=== PATIENT | male | born 1945 | race Caucasian/White ===

== ENCOUNTER 2016-12-22 09:10 | Inpatient (IN) | payer MEDICARE ==
[~2016-12-22] VITALS: Ht 188 cm; Wt 62.2 kg
[2016-12-22] VITALS (8 sets, daily range): BP systolic 102–116; BP diastolic 59–72; PULSE 86–110; RESP 18–26; TEMP 97.7–98.1; O2SAT 74–95
[~2016-12-22 09:10] MED LIST: PRED50 PO
[2016-12-22] MEDS ORDERED: RESP: ALBUTEROL 2.5 MG/IPRATROPIUM 0.5 MG NEB (PRN) ONE ×2 (09:30)
--- NOTE | 2016-12-22 09:39 | PD ---
HPI Chief Complaint: Respiratory Distress Time Seen by Provider: 09:22 Travel History International Travel<30 days: No Contact w/Intl Traveler<30days: No Traveled to known affect area: No History of Present Illness HPI This patient presents with shortness of breath with respiratory distress. He has room air saturation 74% on arrival. He is a lifelong smoker who quit 3 weeks ago. He is been recently very congested and having a cough productive of yellow phlegm. He is not sure if he has had any fever. He denies chest pain other than when he coughs in his chest wall is sore. Symptoms are severe. No alleviating factors. Duration is 3 days. He denies cardiac disease PFSH Past Medical History Hx Anticoagulant Therapy: Yes (ASPIRIN 81) Asthma: Yes COPD: Yes Respiratory: Yes (COPD) Past Surgical History Surgical History: No Previous Surgery Social History Alcohol Use: Yes (3-4 SHOTS OF [place] EVERY DAY ) Tobacco Use: No Substance Use: No Allergies-Medications (Allergen,Severity, Reaction): Coded Allergies: No Known Allergies (Unverified , 12/22/16) Reported Meds & Prescriptions Reported Meds & Active Scripts Active Reported Aspirin 81 Mg Chew 81 Mg CHEW DAILY Review of Systems General / Constitutional: No: Fever Eyes: No: Visual changes HENT: Positive: Congestion, No: Headaches Cardiovascular: No: Chest Pain or Discomfort Respiratory: Positive: Cough, Shortness of Breath, Wheezing Gastrointestinal: No: Abdominal Pain Genitourinary: No: Dysuria Musculoskeletal: No: Pain Skin: No Rash Neurologic: No: Weakness Psychiatric: No: Depression Endocrine: No: Polydipsia Hematologic/Lymphatic: No: Easy Bruising Physical Exam Narrative GENERAL: Thin elderly well-developed patient in respiratory distress. SKIN: Warm and dry. HEAD: Atraumatic. Normocephalic. EYES: Pupils equal and round. No scleral icterus. No injection or drainage. ENT: No nasal bleeding or discharge. Mucous membranes pink and moist. NECK: Trachea midline. No JVD. CARDIOVASCULAR: Regular rate and rhythm. No murmur appreciated. Tachycardic without ectopy RESPIRATORY: Positive accessory muscle use. Diffuse rhonchi with expiratory wheezing. Breath sounds equal bilaterally. No crackles heard GASTROINTESTINAL: Abdomen soft, non-tender, nondistended. Hepatic and splenic margins not palpable. MUSCULOSKELETAL: No obvious deformities. No clubbing. No cyanosis. No edema. NEUROLOGICAL: Awake and alert. No obvious cranial nerve deficits. Motor grossly within normal limits. Normal speech. PSYCHIATRIC: Appropriate mood and affect; insight and judgment normal. Data Data Last Documented VS Vital Signs Date Time Temp Pulse Resp B/P Pulse Ox O2 Delivery O2 Flow Rate FiO2 12/22/16 10:24 94 Nasal Cannula 5.00 12/22/16 09:19 26 12/22/16 09:13 98.1 110 104/72 Orders Albuterol-Ipratropium Neb (Duoneb Neb) (12/22/16 09:30) Albuterol-Ipratropium Neb (Duoneb Neb) (12/22/16 09:30) Complete Blood Count With Diff (12/22/16 09:32) Basic Metabolic Panel (Bmp) (12/22/16 09:32) Influenzae A/B Antigen (12/22/16 09:32) Iv Access Insert/Monitor (12/22/16 09:32) Ecg Monitoring (12/22/16 09:32) Oximetry (12/22/16 09:32) Oxygen Administration (12/22/16 09:32) Chest, Single Ap (12/22/16 09:32) Sodium Chloride 0.9% Flush (Ns Flush) (12/22/16 09:45) Methylprednisolone So Succ Inj (Solumedr (12/22/16 09:45) Albuterol-Ipratropium Neb (Duoneb Neb) (12/22/16 09:45) Sputum Culture And Gram Stain (12/22/16 09:46) Electrocardiogram (12/22/16 09:28) Levofloxacin (Levaquin) (12/22/16 10:45) Albuterol-Ipratropium Neb (Duoneb Neb) (12/22/16 10:45) Admit To Inpatient (12/22/16 ) Vital Signs (Adult) Q4H (12/22/16 11:27) Bedside Glucose LISHA.AC&HS (12/22/16 11:27) Intake + Output LISHA.QSHIFT (12/22/16 11:27) Diet Heart Healthy (12/22/16 Lunch) Sodium Chloride 0.9% Flush (Ns Flush) (12/22/16 11:30) Sodium Chloride 0.9% Flush (Ns Flush) (12/22/16 21:00) Acetaminophen (Tylenol) (12/22/16 11:30) Ondansetron Inj (Zofran Inj) (12/22/16 11:30) Basic Metabolic Panel (Bmp) (12/23/16 06:00) Complete Blood Count With Diff (12/23/16 06:00) Resp Oxygen Nolberto C Titrat 1-4 L (12/22/16 ) Enoxaparin Inj (Lovenox Inj) (12/22/16 11:30) Naloxone Inj (Narcan Inj) (12/22/16 11:30) Inpatient Certification (12/22/16 ) Ceftriaxone Inj (Rocephin Inj) (12/22/16 11:30) Azithromycin Inj (Zithromax Inj) (12/22/16 11:30) Methylprednisolone So Succ Inj (Solumedr (12/22/16 12:00) Albuterol-Ipratropium Neb (Duoneb Neb) (12/22/16 14:00) Albuterol-Ipratropium Neb (Duoneb Neb) (12/22/16 11:30) Potassium Chloride (Kcl) (12/22/16 11:30) Labs Laboratory Tests Test 12/22/16 09:35 White Blood Count 15.7 TH/MM3 Red Blood Count 4.43 MIL/MM3 Hemoglobin 16.3 GM/DL Hematocrit 47.7 % Mean Corpuscular Volume 107.8 FL Mean Corpuscular Hemoglobin 36.7 PG Mean Corpuscular Hemoglobin 34.1 % Concent Red Cell Distribution Width 12.4 % Platelet Count 623 TH/MM3 Mean Platelet Volume 8.7 FL Neutrophils (%) (Auto) 74.1 % Lymphocytes (%) (Auto) 14.2 % Monocytes (%) (Auto) 11.3 % Eosinophils (%) (Auto) 0.1 % Basophils (%) (Auto) 0.3 % Neutrophils # (Auto) 11.6 TH/MM3 Lymphocytes # (Auto) 2.2 TH/MM3 Monocytes # (Auto) 1.8 TH/MM3 Eosinophils # (Auto) 0.0 TH/MM3 Basophils # (Auto) 0.0 TH/MM3 CBC Comment DIFF FINAL Differential Comment Sodium Level 138 MEQ/L Potassium Level 3.1 MEQ/L Chloride Level 99 MEQ/L Carbon Dioxide Level 29.5 MEQ/L Anion Gap 10 MEQ/L Blood Urea Nitrogen 17 MG/DL Creatinine 0.97 MG/DL Estimat Glomerular Filtration 77 ML/MIN Rate Random Glucose 105 MG/DL Calcium Level 8.8 MG/DL MDM Medical Decision Making Medical Screen Exam Complete: Yes Emergency Medical Condition: Yes Medical Record Reviewed: Yes Differential Diagnosis Pneumonia, COPD, pneumothorax Narrative Course I have reviewed the patient's electronic medical record. No prior respiratory complaint visits Patient arrives critically ill with respiratory distress and hypoxic respiratory failure IV placed I placed him on 100% nonrebreather and his saturation is 95% on that Gave him a series of 3 nebulizer treatments and IV Solu-Medrol Extended cardiac monitoring reveals sinus tachycardia without ectopy I reviewed his EKG which shows sinus tachycardia but no ST elevation or ectopy I reviewed his chest x-ray which shows hyperinflation but no pneumothorax or consolidation CBC shows leukocytosis of 15,000 Metabolic profile shows hypokalemia of 3.1 I ordered him a fourth nebulizer treatment as he had significant improvement after the first 3 On reassessment he is still short of breath requiring hospitalization and hypoxic but much improved and in less distress I don't feel he requires intensive care at this point On a nasal cannula 5 L he saturates 95-97% I think this will be able to be weaned down in the near future He was critically ill on arrival but now improved but requiring hospitalization I spoke with hospitalist will admit for oxygen and nebulizers and steroids and antibiotics I gave him a Levaquin dose Critical Care Narrative Aggregate critical care time was 36 minutes. Time to perform other separately billable procedures was not included in the critical care time. My time did not include minutes spent treating any other patients simultaneously or on activities that did not directly contribute to the patient's treatment. The services I provided to this patient were to treat and/or prevent clinically significant deterioration that could result in: Hypoxemic brain injury, cardiopulmonary arrest, cardiac arrhythmia I provided critical care services requiring my management, as noted below: Chart data review, documentation time, medication orders and management, vital sign assessments/reviewing monitor data, ordering and reviewing lab tests, ordering and interpreting/reviewing x-rays and diagnostic studies, care of the patient and discussion of the patient with the admitting physicians. Diagnosis Primary Impression: Acute respiratory failure with hypoxia Additional Impression: COPD with acute exacerbation Admitting Information Admitting Physician Requests: Admit Ronen Madera MD Dec 22, 2016 09:39
[2016-12-22] MEDS ORDERED: methylPREDNISolone SOD SUCC 125 MG/2 ML VIAL IVP ONE (09:45)
[2016-12-22] MEDS ORDERED: SODIUM CHLORIDE 0.9% FLUSH 5 ML FLUSH IVF PRN (09:45)
[2016-12-22] MEDS: RESP: ALBUTEROL 2.5 MG/IPRATROPIUM 0.5 MG NEB (SCH) INH ×2 (09:45→09:51)
[2016-12-22] MEDS ORDERED: ASPI81CH CHEW (09:46)
[2016-12-22 09:57] LABS: AUTOMATED NEUTROPHIL # 11.6 TH/MM3 (1.8-7.7); BASOPHIL % 0.3 % (0.0-2.0); EOSINOPHIL % 0.1 % (0.0-4.0); HEMATOCRIT 47.7 % (39.0-51.0); HEMO FLAGS DIFF FINAL; LYMPH % 14.2 % (9.0-44.0); LYMPHOCYTE # 2.2 TH/MM3 (1.0-4.8); MEAN CELL VOLUME 107.8 FL (80.0-100.0); MEAN CORPUSCULAR HEMOGLOBIN 36.7 PG (27.0-34.0); MEAN CORPUSCULAR HGB CONC 34.1 % (32.0-36.0); MONO % 11.3 % (0.0-8.0); NEUT % 74.1 % (16.0-70.0); PLATELET COUNT 623 TH/MM3 (150-450); RED BLOOD COUNT 4.43 MIL/MM3 (4.50-5.90); RED CELL DISTRIBUTION WIDTH 12.4 % (11.6-17.2); WHITE BLOOD COUNT 15.7 TH/MM3 (4.0-11.0)
[2016-12-22 10:13] LABS: BICARBONATE 29.5 MEQ/L (21.0-32.0); POTASSIUM 3.1 MEQ/L (3.5-5.1)
--- NOTE | 2016-12-22 10:29 | RADRPT ---
EXAM DATE/TIME: 12/22/2016 09:40 [facility] COMPARISON: No previous studies available for comparison. INDICATIONS: Shortness of breath. MEDICAL HISTORY: None. SURGICAL HISTORY: None. ENCOUNTER: Initial ACUITY: 2 weeks PAIN SCORE: 0/10 LOCATION: Bilateral chest FINDINGS: Lungs are hyper inflated but clear. Heart and pulmonary vascularity are normal. Portion of bony ske leton visualized unremarkable. CONCLUSION: Hyperinflation otherwise negative. Jaswinder Gilman MD FACR on December 22, 2016 at 10:25 Board Certified Radiologist. This report was verified electronically.
[2016-12-22] MEDS ORDERED: RESP: ALBUTEROL 2.5 MG/IPRATROPIUM 0.5 MG NEB (SCH) NEB ONE (10:45)
[2016-12-22] MEDS ORDERED: LEVOFLOXACIN 750 MG TAB PO ONE (10:45)
[2016-12-22] MEDS ORDERED: SODIUM CHLORIDE 0.9% FLUSH 5 ML FLUSH FLUSH PRN (11:30)
[2016-12-22] MEDS ORDERED: ACETAMINOPHEN 325 MG TAB PO PRN (11:30)
[2016-12-22] MEDS ORDERED: NALOXONE HCL 0.4 MG/ML AMP IV PRN (11:30)
[2016-12-22] MEDS ORDERED: RESP: ALBUTEROL 2.5 MG/IPRATROPIUM 0.5 MG NEB (PRN) NEB (11:30)
[2016-12-22] MEDS ORDERED: ONDANSETRON HCL 4 MG/2 ML VIAL IVP PRN (11:30)
[2016-12-22] MEDS: cefTRIAXone INJ 1,000 MG in SODIUM CHLORIDE 0.9% INJ 100 ML IV SCH (12:59)
[2016-12-22] MEDS: ENOXAPARIN SODIUM 40 MG/0.4 ML SYRINGE SQ SCH (12:59)
[2016-12-22] MEDS ORDERED: POTASSIUM CHLORIDE 20 MEQ CONTROLLED RELEASE TAB PO ONE (13:00)
[2016-12-22] MEDS: RESP: ALBUTEROL 2.5 MG/IPRATROPIUM 0.5 MG NEB (SCH) NEB ×2 (14:20→21:48)
[2016-12-22] MEDS: AZITHROMYCIN INJ 500 MG in SODIUM CHLOR 0.9% 250 ML INJ 250 ML IV SCH (14:34)
--- NOTE | 2016-12-22 15:45 | HHI.HP ---
HPI Service [facility] Primary Care Physician Gema Paiz M.D. Admission Diagnosis acute hypoxic resp failure from COPD Diagnoses: Chief Complaint: SOB (Roxi Hirsch) Travel History International Travel<30 Days: No Contact w/Intl Traveler <30 Da: No Traveled to Known Affected Are: No (Roxi Hirsch) History of Present Illness This is a 71-year-old male with significant past medical history of tobacco abuse, COPD, daily alcohol use. Patient presented to the emergency room with worsening shortness of breath for the last 3 weeks. According to the patient, approximately 3 weeks ago he started to become more short of breath, had increased cough with increased sputum that was white in color. He noticed increased wheezing and very SOB with minimal activity. No CP, no palpitations, no fever, no chills. No other symptoms. At that time he stopped smoking. He has not taken any medications [id number]. Approximately 4 weeks ago he saw his primary care physician and had laboratory workup and was found in stable condition but was told he probably had COPD. Patient endorses that he's lost a considerable amount of weight in the last 6 months, he's not sure how much. He has very poor appetite. No blood in the stool, no nausea, no vomiting. He was referred to gastroenterology but has not followed up to have workup. Denies any abdominal pain, no diarrhea. Patient was noted in significant respiratory distress on arrival. He was noted hypoxic on room air, sats 74%. Patient was put on 100% nonrebreather, was given 3 nebulizer treatments and IV Solu-Medrol. EKG completed showed sinus tachycardia, no ST segment elevation or ectopy.CBC was significant for WBC of 15.7, MCV 107.8. Platelets 623. BMP was essentially unremarkable except for potassium of 3.1. Chest x-ray did not reveal any significant findings other than hyperinflation. Influenza was negative. Patient was started on empiric antibiotics. Potassium was corrected. Patient is now evaluated, and indicates he feels better. Patient is admitted for further evaluation and treatment. (Roxi Hirsch) Review of Systems Constitutional: COMPLAINS OF: Weight loss, Change in appetite, DENIES: Diaphoretic episodes, Fatigue, Fever, Weight gain, Chills, Dizziness, Night Sweats Endocrine: DENIES: Heat/cold intolerance, Polydipsia, Polyuria, Polyphagia Eyes: DENIES: Blurred vision, Diplopia, Eye inflammation, Eye pain, Vision loss , Photosensitivity, Double Vision Ears, nose, mouth, throat: DENIES: Tinnitus, Hearing loss, Vertigo, Nasal discharge, Oral lesions, Throat pain, Hoarseness, Ear Pain, Running Nose, Epistaxis, Sinus Pain, Toothache, Odynophagia Respiratory: COMPLAINS OF: Cough, Wheezing, Sputum production, Shortness of breath, DENIES: Apneas, Snoring, Hemoptysis Cardiovascular: DENIES: Chest pain, Palpitations, Syncope, Dyspnea on Exertion , PND, Lower Extremity Edema, Orthopnea, Claudication Gastrointestinal: COMPLAINS OF: Anorexia Genitourinary: DENIES: Sexual dysfunction, Urinary frequency, Urinary incontinence, Urgency, Hematuria, Dysuria, Nocturia, Penile Discharge, Testicular Pain, Testicular Swelling Musculoskeletal: DENIES: Joint pain, Muscle aches, Stiffness, Joint Swelling, Back pain, Neck pain Integumentary: DENIES: Abnormal pigmentation, Nail changes, Pruritus, Rash Hematologic/lymphatic: DENIES: Bruising, Lymphadenopathy Immunologic/allergic: DENIES: Eczema, Urticaria Neurologic: DENIES: Abnormal gait, Headache, Localized weakness, Paresthesias, Seizures, Speech Problems, Tremor, Poor Balance Psychiatric: DENIES: Anxiety, Confusion, Mood changes, Depression, Hallucinations, Agitation, Suicidal Ideation, Homicidal Ideation, Delusions ( Roxi Hirsch) Past Family Social History Past Medical History COPD Tobacco abuse Daily ETOH use weight loss Past Surgical History no surgery Reported Medications Reported Meds & Active Scripts Active Reported Aspirin 81 Mg Chew 81 Mg CHEW DAILY (Roxi Hirsch) Allergies: Coded Allergies: No Known Allergies (Unverified , 12/22/16) Active Ordered Medications Inpatient Medications Acetaminophen (Tylenol) 650 mg Q4H PRN PO TEMP > 100.4; Start 12/22/16 at 11:30 Albuterol/ Ipratropium (Duoneb Neb) 1 ampule Q6HR NEB PRN NEB sob; Start at 11:30 Azithromycin/ Sodium Chloride (Zithromax Inj/ NS 250 ml Inj) 250 ml @ 250 mls/ hr Q24H IV Last administered on 12/22/16t 14:34; Start 12/22/16 at 15:00 Ceftriaxone Sodium 1000 mg/ Sodium Chloride 100 ml @ 200 mls/hr Q24H IV Last administered on 12/22/16 12:59; Start 12/22/16 at 14:00 Enoxaparin Sodium (Lovenox Inj) 40 mg Q24H SQ Last administered on 12/22/16 12 :59; Start 12/22/16 at 13:00 IV Flush (NS Flush) 2 ml BID FLUSH ; Start 12/22/16 at 21:00 Levofloxacin (Levaquin) 750 mg ONCE ONCE PO Last administered on 12/22/16 11: 16; Start 12/22/16 at 10:45; Stop 12/22/16 at 10:46; Status DC Methylprednisolone Sodium Succinate (SoluMEDROL INJ) 40 mg Q6H IV PUSH ; Start 12/22/16 at 16:00 Naloxone HCl 0.4 mg 0.4 mg UNSCH PRN IV SEE LABEL COMMENTS; Start 12/22/16 at 11:30 Ondansetron HCl (Zofran Inj) 4 mg Q6H PRN IVP NAUSEA OR VOMITING; Start at 11:30 Potassium Chloride (KCl) 40 meq ONCE ONCE PO Last administered on 12/22/16 12 :59; Start 12/22/16 at 13:00; Stop 12/22/16 at 13:01; Status DC Family History Mother at age 93 from old age Father as a victim from homicide Sister from breast cancer at age 54 Social History , no children, 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 Smokes 1/2 ppd x 4 years, drinks 3-4 lyndon Casimiro's and coke a day, no substance abuse. (Roxi Hirsch) Physical Exam Vital Signs Vital Signs Date Time Temp Pulse Resp B/P Pulse Ox O2 Delivery O2 Flow Rate FiO2 12/22/16 14:00 95 21 102/59 94 Nasal Cannula 4 12/22/16 10:24 94 Nasal Cannula 5.00 12/22/16 10:05 95 Non-Rebreather 15 12/22/16 10:05 95 Non-Rebreather 15 12/22/16 09:45 94 Non-Rebreather 15.00 12/22/16 09:19 26 95 Non-Rebreather 15 12/22/16 09:15 26 87 12/22/16 09:13 98.1 110 24 104/72 74 Room Air Physical Exam GENERAL: This is a cachectic male, in no distress. SKIN: No rashes, ecchymoses or lesions. Cool and dry. HEAD: Atraumatic. Normocephalic. No temporal or scalp tenderness. Bitemporal muscle wasting. EYES: Pupils equal round and reactive. Extraocular motions intact. No scleral icterus. No injection or drainage. ENT: Nose without bleeding, purulent drainage or septal hematoma. Throat without erythema, tonsillar hypertrophy or exudate. Uvula midline. Airway patent. NECK: Trachea midline. No JVD or lymphadenopathy. Supple, nontender, no meningeal signs. CARDIOVASCULAR: Regular rate and rhythm without murmurs, gallops, or rubs. RESPIRATORY: diminished, diffuse exp. wheeze GASTROINTESTINAL: Abdomen soft, non-tender, nondistended. No hepato-splenomegaly , or palpable masses. No guarding. MUSCULOSKELETAL: Extremities without clubbing, cyanosis, or edema. No joint tenderness, effusion, or edema noted. No calf tenderness. Negative Homans sign bilaterally. Muscle atrophy bilat. NEUROLOGICAL: Awake and alert. Cranial nerves II through XII intact. Motor and sensory grossly within normal limits. Five out of 5 muscle strength in all muscle groups. Normal speech. Laboratory Laboratory Tests Test 12/22/16 09:35 White Blood Count 15.7 Red Blood Count 4.43 Hemoglobin 16.3 Hematocrit 47.7 Mean Corpuscular Volume 107.8 Mean Corpuscular Hemoglobin 36.7 Mean Corpuscular Hemoglobin 34.1 Concent Red Cell Distribution Width 12.4 Platelet Count 623 Mean Platelet Volume 8.7 Neutrophils (%) (Auto) 74.1 Lymphocytes (%) (Auto) 14.2 Monocytes (%) (Auto) 11.3 Eosinophils (%) (Auto) 0.1 Basophils (%) (Auto) 0.3 Neutrophils # (Auto) 11.6 Lymphocytes # (Auto) 2.2 Monocytes # (Auto) 1.8 Eosinophils # (Auto) 0.0 Basophils # (Auto) 0.0 CBC Comment DIFF FINAL Differential Comment Sodium Level 138 Potassium Level 3.1 Chloride Level 99 Carbon Dioxide Level 29.5 Anion Gap 10 Blood Urea Nitrogen 17 Creatinine 0.97 Estimat Glomerular Filtration 77 Rate Random Glucose 105 Calcium Level 8.8 Date/Time Procedure Status Source Growth 12/22/16 09:55 Gram Stain - Final Resulted Sputum Expectorated Sputum 12/22/16 09:55 Sputum Culture Resulted Sputum Expectorated Sputum Pending 12/22/16 09:35 Influenza Types A,B Antigen (MARÍA) - Final Complete Nasal Washing NEGATIVE FOR FLU A AND B ANTIGEN.... (Roxi Hirsch) Result Diagram: 12/22/1635 12/22/1635 Imaging Last Impressions Chest X-Ray 12/22/1632 Signed Impressions: Service Date/Time: Tuesday, December 22, 2016 09:40 - CONCLUSION: Hyperinflation otherwise negative. Jaswinder Gilman MD FACR (Roxi Hirsch) Assessment and Plan Problem List: (1) COPD with acute exacerbation (2) Acute respiratory failure with hypoxia (3) Tobacco abuse (4) Alcohol abuse, daily use (5) Hypoxia (6) Malnourished (7) Unintentional weight loss Assessment and Plan Admit to Dr. Braga 71-year-old male with history of tobacco abuse and COPD, presented to the emergency room in acute respiratory failure with hypoxia, COPD exacerbation with possible bronchitis. -Continue with oxygen to keep sats greater than 92 -Continue with IV Solu-Medrol 40 mg every 6. -Continue with empiric antibiotics, follow sputum cultures Continue with DuoNeb's -Patient may need oxygen upon discharge, we will order a walk test in the morning Anorexia, with unintentional weight loss, muscle wasting -Regular diet, we will add Boost TSH, B12 level Follow up with gastroenterology for further workup as outpatient Daily alcohol use We will start thiamine and folic acid We will check B12 level Alcohol abuse counseling completed We will add Librium 10 mg by mouth every 8 when necessary for anxiety Monitor for withdrawal symptoms Lovenox for DVT prophylaxis Home medications reviewed, initiated as indicated Plan of care discussed with the patient, attending and registered nurse. Further management of the patient will be dependent on the hospital course This patient was seen by myself and Dr. Braga, this H&P is written on his behalf (Roxi Hirsch) Assessment and Plan patient seen and examined agree with above assessment and plan discussed with Roxi ALEJO (Kirsten Braga MD) Physician Certification 2 Midnight Certification Type: Admission for Inpatient Services Order for Inpatient Services The services are ordered in accordance with Medicare regulations or non- Medicare payer requirements, as applicable. In the case of services not specified as inpatient-only, they are appropriately provided as inpatient services in accordance with the 2-midnight benchmark. Estimated LOS (days): 2 2 days is the estimated time the patient will need to remain in the hospital, assuming treatment plan goals are met and no additional complications. Post-Hospital Plan: Home Health (Roxi Hirsch) Roxi Hirsch Dec 22, 2016 15:45 Kirsten Braga MD Dec 23, 2016 14:14
[2016-12-22] MEDS: methylPREDNISolone SOD SUCC 40 MG/1 ML VIAL IV PUSH SCH ×2 (17:12→21:36)
[2016-12-22] MEDS: FOLIC ACID 1 MG TAB PO SCH (18:18)
[2016-12-22] MEDS: THIAMINE HCL 100 MG TAB PO SCH (18:18)
[2016-12-22] MEDS: SODIUM CHLORIDE 0.9% FLUSH 5 ML FLUSH FLUSH SCH ×2 (21:01→21:48)
--- NOTE | 2016-12-22 21:47 | EKG ---
Date Performed: 12/22/2016 Time Performed: 09:28:50 PTAGE: 71 years EKG: SINUS TACHYCARDIA NONSPECIFIC T-WAVE ABNORMALITY ABNORMAL RHYTHM ECG NO PREVIOUS TRACING DOCTOR: Hammad Milton Interpretating Date/Time 12/22/2016 21:45:45
[2016-12-23] VITALS (7 sets, daily range): BP systolic 104–124; BP diastolic 65–74; PULSE 75–83; RESP 17–20; TEMP 97–97.9; O2SAT 94–97
[2016-12-23] MEDS: methylPREDNISolone SOD SUCC 40 MG/1 ML VIAL IV PUSH SCH (04:11)
[2016-12-23] MEDS: THIAMINE HCL 100 MG TAB PO SCH (08:24)
[2016-12-23] MEDS: ASPIRIN 81 MG CHEW TAB CHEW SCH (08:24)
[2016-12-23] MEDS: FOLIC ACID 1 MG TAB PO SCH (08:24)
[2016-12-23] MEDS: SODIUM CHLORIDE 0.9% FLUSH 5 ML FLUSH FLUSH SCH (08:25)
[2016-12-23] MEDS: RESP: ALBUTEROL 2.5 MG/IPRATROPIUM 0.5 MG NEB (SCH) NEB ×3 (09:31→20:01)
[2016-12-23 09:35] LABS: AUTOMATED NEUTROPHIL # 12.8 TH/MM3 (1.8-7.7); BASOPHIL % 0.3 % (0.0-2.0); HEMATOCRIT 43.3 % (39.0-51.0); HEMO FLAGS DIFF FINAL; LYMPH % 6.1 % (9.0-44.0); LYMPHOCYTE # 0.9 TH/MM3 (1.0-4.8); MEAN CELL VOLUME 107.5 FL (80.0-100.0); MEAN CORPUSCULAR HEMOGLOBIN 37.3 PG (27.0-34.0); MEAN CORPUSCULAR HGB CONC 34.7 % (32.0-36.0); MONO % 3.7 % (0.0-8.0); NEUT % 89.9 % (16.0-70.0); PLATELET COUNT 619 TH/MM3 (150-450); RED BLOOD COUNT 4.03 MIL/MM3 (4.50-5.90); RED CELL DISTRIBUTION WIDTH 12.4 % (11.6-17.2); WHITE BLOOD COUNT 14.3 TH/MM3 (4.0-11.0)
[2016-12-23 10:01] LABS: BICARBONATE 29.5 MEQ/L (21.0-32.0); POTASSIUM 3.6 MEQ/L (3.5-5.1)
--- NOTE | 2016-12-23 11:25 | HHI.PR ---
Subjective Subjective Remarks sob improved on oxygen at 4L/NC sats 97% minimal cough, little sputum, white in color no fever no cp tired anxious to go home Review of Systems Constitutional Constitutional Remarks 12 POINT ROS COMPLETED, NEG. EXCEPT NOTED ABOVE Vitals/Results Intake & Output 12/22/16 12/22/16 12/23/16 15:00 23:00 07:00 Intake Total 400 ml 600 ml Output Total 0 ml 400 ml Balance 400 ml 200 ml Intake Oral 400 ml 600 ml Output Urine Total 0 ml 400 ml # Bowel Movements 0 0 Vital Signs Vital Signs Date Time Temp Pulse Resp B/P Pulse Ox O2 Delivery O2 Flow Rate FiO2 12/23/16 09:33 97 Nasal Cannula 4.00 12/23/16 08:32 97.9 75 18 124/71 95 12/23/16 05:15 97.0 77 17 111/74 94 12/23/16 00:00 97.0 83 19 104/65 96 12/22/16 20:30 98.0 86 18 114/69 95 12/22/16 16:28 97.7 96 19 116/70 94 12/22/16 14:00 95 21 102/59 94 Nasal Cannula 4 CBC/BMP: 12/23/16 0832 12/23/16 0832 Lab Results Laboratory Tests Test 12/23/16 08:32 White Blood Count 14.3 TH/MM3 Red Blood Count 4.03 MIL/MM3 Hemoglobin 15.0 GM/DL Hematocrit 43.3 % Mean Corpuscular Volume 107.5 FL Mean Corpuscular Hemoglobin 37.3 PG Mean Corpuscular Hemoglobin 34.7 % Concent Red Cell Distribution Width 12.4 % Platelet Count 619 TH/MM3 Mean Platelet Volume 8.7 FL Neutrophils (%) (Auto) 89.9 % Lymphocytes (%) (Auto) 6.1 % Monocytes (%) (Auto) 3.7 % Eosinophils (%) (Auto) 0.0 % Basophils (%) (Auto) 0.3 % Neutrophils # (Auto) 12.8 TH/MM3 Lymphocytes # (Auto) 0.9 TH/MM3 Monocytes # (Auto) 0.5 TH/MM3 Eosinophils # (Auto) 0.0 TH/MM3 Basophils # (Auto) 0.0 TH/MM3 CBC Comment DIFF FINAL Differential Comment Sodium Level 141 MEQ/L Potassium Level 3.6 MEQ/L Chloride Level 102 MEQ/L Carbon Dioxide Level 29.5 MEQ/L Anion Gap 10 MEQ/L Blood Urea Nitrogen 22 MG/DL Creatinine 0.76 MG/DL Estimat Glomerular Filtration 101 ML/MIN Rate Random Glucose 146 MG/DL Calcium Level 9.0 MG/DL Physical Exam General General Appearance: Well Developed, No Acute Distress, Comfortable, Malnourished Eyes Eye Exam: Pupils Equal, Pupils Reactive Ears & Nose Ears & Nose Exam: Nasal Mucosa [place] Throat Throat Exam: Oral Mucosa [place] & Moist Neck Neck Exam: Neck Supple, Trachea Midline Pulmonary Resp Remarks faint exp. wheeze RLL Cardiology CV Exam: Regular, Good Perfusion Gastrointestinal/Abdomen GI Exam: Soft, Non-Tender, Bowel Sounds Present, Non-Distended Musculoskeletal MS Exam: Joints Intact, Atrophy Integumentary Skin Exam: Warm, Dry Extremeties Extremities Exam: No Edema, Pedal Pulses Palpable Neurologic Neuro Exam: Alert, Awake, Oriented, Speech Clear, Moving All Extremities, No Focal Deficits VTE Prophylaxis VTE Prophylaxis Meds: Lovenox Assessment/Plan Problem List: (1) COPD with acute exacerbation (2) Acute respiratory failure with hypoxia (3) Tobacco abuse (4) Hypoxia (5) Alcohol abuse, daily use (6) Malnourished (7) Unintentional weight loss Assessment/Plan 71-year-old male with history of tobacco abuse and COPD, presented to the emergency room in acute respiratory failure with hypoxia, COPD exacerbation with possible bronchitis. -Continue with oxygen to keep sats greater than 92 -Continue with IV Solu-Medrol 40 mg, dec to BID -Continue with empiric antibiotics, follow sputum cultures Continue with DuoNeb's -Walk test today Anorexia, with unintentional weight loss, muscle wasting -Regular diet, we will add Boost TSH and B12 okay Follow up with gastroenterology for further workup as outpatient Daily alcohol use Continue thiamine and folic acid Alcohol abuse counseling completed Librium 10 mg by mouth every 8 when necessary for anxiety Monitor for withdrawal symptoms Lovenox for DVT prophylaxis CM for dc planning, may need oxygen Overall improving, wean off steroids, check walk test keep one more day, if stable, poss. dc tomorrow D/W RN D/W Dr. Braga D/W pt. This patient was seen by myself and Dr. Braga, this note is written on his behalf Roxi Hirsch Dec 23, 2016 11:25
--- NOTE | 2016-12-23 11:26 | HHI.FF ---
Face to Face Verification Diagnosis: (1) COPD with acute exacerbation (2) Acute respiratory failure with hypoxia (3) Tobacco abuse (4) Hypoxia (5) Alcohol abuse, daily use (6) Malnourished (7) Unintentional weight loss Home Health Nursing Order: Medical education Signs/symptoms of disease process Oxygen administration education Nursing assessment with vital signs Professional Benefits Sales Consultant Order: To Evaluate: Support services I have seen patient Adin Chaudhary on 12/23/16. My clinical findings support the need for the requested home health care services because: Patient has SOB Deconditioned w/ increased weakness I certify that my clinical findings support that this patient is homebound because: Hx COPD- exertion dyspnea/weakness Roxi Hirsch Dec 23, 2016 11:26
[2016-12-23] MEDS: cefTRIAXone INJ 1,000 MG in SODIUM CHLORIDE 0.9% INJ 100 ML IV SCH (14:40)
[2016-12-23] MEDS: ENOXAPARIN SODIUM 40 MG/0.4 ML SYRINGE SQ SCH (14:40)
[2016-12-23] MEDS: AZITHROMYCIN INJ 500 MG in SODIUM CHLOR 0.9% 250 ML INJ 250 ML IV SCH (15:36)
[2016-12-23] MEDS ORDERED: OXYGENTANK NAS.CANULA (16:52)
[2016-12-23] MEDS ORDERED: methylPREDNISolone SOD SUCC 40 MG/1 ML VIAL IV PUSH SCH (21:00)
[2016-12-24] VITALS: BP 127/78; PULSE 83; RESP 20; TEMP 96.4; O2SAT 93
[2016-12-24 04:00] VITALS: BP 123/72; PULSE 79; RESP 20; TEMP 98.1; O2SAT 97
[2016-12-24 08:00] VITALS: BP 117/77; PULSE 67; RESP 18; TEMP 96.9; O2SAT 97
[2016-12-24] MEDS: RESP: ALBUTEROL 2.5 MG/IPRATROPIUM 0.5 MG NEB (SCH) NEB ×2 (08:09→14:00)
[2016-12-24 08:10] VITALS: O2SAT 97
[2016-12-24] MEDS ORDERED: predniSONE 20 MG TAB PO SCH (09:00)
[2016-12-24] MEDS: THIAMINE HCL 100 MG TAB PO SCH (09:06)
[2016-12-24] MEDS: ASPIRIN 81 MG CHEW TAB CHEW SCH (09:06)
[2016-12-24] MEDS: FOLIC ACID 1 MG TAB PO SCH (09:06)
[2016-12-24] MEDS: SODIUM CHLORIDE 0.9% FLUSH 5 ML FLUSH FLUSH SCH (09:06)
--- NOTE | 2016-12-24 10:10 | HHI.PR ---
Subjective Subjective Remarks sob improved on oxygen at 3L/NC sats 97% minimal cough, little sputum, white in color no fever had chest pressure when he ambulated without oxygen last night, relieved with oxygen and rest, non radiating. had another episode this morning. Review of Systems Constitutional Constitutional Remarks 12 POINT ROS COMPLETED, NEG. EXCEPT NOTED ABOVE Vitals/Results Intake & Output 12/23/16 12/23/16 12/24/16 15:00 23:00 07:00 Intake Total 720 ml 240 ml 120 ml Balance 720 ml 240 ml 120 ml Intake Oral 720 ml 240 ml 120 ml # Voids 3 1 1 # Bowel Movements 0 0 0 Vital Signs Vital Signs Date Time Temp Pulse Resp B/P Pulse Ox O2 Delivery O2 Flow Rate FiO2 12/24/16 08:10 97 Nasal Cannula 3.00 12/24/16 08:00 96.9 67 18 117/77 97 12/24/16 04:00 98.1 79 20 123/72 97 12/24/16 00:00 96.4 83 20 127/78 93 12/23/16 20:02 95 Nasal Cannula 3.00 12/23/16 20:00 97.9 81 20 120/69 96 12/23/16 15:34 3.00 12/23/16 12:11 97.4 76 18 124/69 96 CBC/BMP: 12/23/16 0832 12/23/16 0832 Physical Exam General General Appearance: Well Developed, No Acute Distress, Comfortable, Malnourished Eyes Eye Exam: Pupils Equal, Pupils Reactive Ears & Nose Ears & Nose Exam: Nasal Mucosa [place] Throat Throat Exam: Oral Mucosa [place] & Moist Neck Neck Exam: Neck Supple, Trachea Midline Pulmonary Resp Remarks faint exp. wheeze [facility] Cardiology CV Exam: Regular, Good Perfusion Gastrointestinal/Abdomen GI Exam: Soft, Non-Tender, Bowel Sounds Present, Non-Distended Musculoskeletal MS Exam: Joints Intact, Atrophy Integumentary Skin Exam: Warm, Dry Extremeties Extremities Exam: No Edema, Pedal Pulses Palpable Neurologic Neuro Exam: Alert, Awake, Oriented, Speech Clear, Moving All Extremities, No Focal Deficits VTE Prophylaxis VTE Prophylaxis Meds: Lovenox Assessment/Plan Problem List: (1) COPD with acute exacerbation (2) Acute respiratory failure with hypoxia (3) Tobacco abuse (4) Hypoxia (5) Alcohol abuse, daily use (6) Malnourished (7) Unintentional weight loss Assessment/Plan 71-year-old male with history of tobacco abuse and COPD, presented to the emergency room in acute respiratory failure with hypoxia, COPD exacerbation with possible bronchitis. -Continue with oxygen to keep sats greater than 92 -Change to PO steroids -Continue with empiric antibiotics, follow sputum cultures Continue with DuoNeb's -Walk test done, needs oxygen Chest pain with exertion, relieved with oxygen and rest -CKISO and Trop now -12 lead EKG now -continue ASA Anorexia, with unintentional weight loss, muscle wasting -Regular diet, Boost TSH and B12 okay Follow up with gastroenterology for further workup as outpatient Daily alcohol use Continue thiamine and folic acid Alcohol abuse counseling completed Librium 10 mg by mouth every 8 when necessary for anxiety Monitor for withdrawal symptoms Lovenox for DVT prophylaxis CM for dc planning, for HHC, needs oxygen Will f/u on trop and EKG possible discharge later today Discussed need for compliance and f/u with PCP/GI/pulm on discharge. D/W RN D/W Dr. Braga D/W pt. D/W CM This patient was seen by myself and Dr. Braga, this note is written on his behalf Discharge Minutes: 40 Roxi Hirsch Dec 24, 2016 10:10
[2016-12-24] MEDS ORDERED: ASPI81CH CHEW (10:11)
[2016-12-24] MEDS ORDERED: PRED20 PO (10:11)
[2016-12-24] MEDS ORDERED: ZITH500T PO (10:14)
[2016-12-24] MEDS ORDERED: VENTAER INH (10:14)
--- NOTE | 2016-12-24 10:14 | HHI.DCPOC ---
Discharge Care Plan Diagnosis: (1) Tobacco abuse (2) Alcohol abuse, daily use (3) Malnourished (4) Unintentional weight loss (5) Hypoxia (6) COPD with acute exacerbation (7) Acute respiratory failure with hypoxia Your Health Problems Are: Chest Pain Cough Shortness of Breath Goals to Promote Your Health * To prevent worsening of your condition and complications * To maintain your health at the optimal level Directions to Meet Your Goals Take your medications as prescribed Follow your dietary instruction Follow activity as directed Keep your appointments as scheduled Take your immunizations and boosters as scheduled If your symptoms worsen call your PCP, if no PCP go to Urgent Care Center or Emergency Room Smoking is Dangerous to Your Health. Avoid second hand smoke Call the 24-hour hour crisis hotline for domestic abuse at Roxi Hirsch Dec 24, 2016 10:14
[2016-12-24] MEDS ORDERED: OXYGENTANK NAS.CANULA ×2 (11:07→14:32)
[2016-12-24 12:00] VITALS: BP 112/74; PULSE 68; RESP 18; TEMP 97.1; O2SAT 98
[2016-12-24 12:10] LABS: CREATINE KINASE 26 U/L (39-308)
[2016-12-24] MEDS: cefTRIAXone INJ 1,000 MG in SODIUM CHLORIDE 0.9% INJ 100 ML IV SCH (12:51)
[2016-12-24] MEDS: ENOXAPARIN SODIUM 40 MG/0.4 ML SYRINGE SQ SCH (12:51)
--- NOTE | 2016-12-24 14:33 | HHI.DS ---
Discharge Summary Admission Date Dec 22, 2016 at 11:48 Discharge Date: Dec 24, 2016 Admitting Diagnosis acute hypoxic resp failure from COPD (1) COPD with acute exacerbation (2) Acute respiratory failure with hypoxia (3) Tobacco abuse (4) Alcohol abuse, daily use (5) Hypoxia (6) Malnourished (7) Unintentional weight loss Brief History CBC/BMP: 12/23/16 0832 12/23/16 0832 Significant Findings Laboratory Tests Test 12/22/16 12/23/16 12/24/16 09:35 08:32 11:17 White Blood Count 15.7 TH/MM3 14.3 TH/MM3 (4.0-11.0) (4.0-11.0) Red Blood Count 4.43 MIL/MM3 4.03 MIL/MM3 (4.50-5.90) (4.50-5.90) Mean Corpuscular Volume 107.8 FL 107.5 FL (80.0-100.0) (80.0-100.0) Mean Corpuscular Hemoglobin 36.7 PG 37.3 PG (27.0-34.0) (27.0-34.0) Platelet Count 623 TH/MM3 619 TH/MM3 (150-450) (150-450) Neutrophils (%) (Auto) 74.1 % 89.9 % (16.0-70.0) (16.0-70.0) Monocytes (%) (Auto) 11.3 % (0.0-8.0) Neutrophils # (Auto) 11.6 TH/MM3 12.8 TH/MM3 (1.8-7.7) (1.8-7.7) Monocytes # (Auto) 1.8 TH/MM3 (0-0.9) Potassium Level 3.1 MEQ/L (3.5-5.1) Estimat Glomerular Filtration 77 ML/MIN (>89) Rate Vitamin B12 Level 1650 PG/ML (193-986) Lymphocytes (%) (Auto) 6.1 % (9.0-44.0) Lymphocytes # (Auto) 0.9 TH/MM3 (1.0-4.8) Blood Urea Nitrogen 22 MG/DL (7-18) Random Glucose 146 MG/DL (74-106) Total Creatine Kinase 26 U/L (39-308) Troponin I LESS THAN 0.02 NG/ML (0.02-0.05) Imaging Last Impressions Chest X-Ray 12/22/16 0932 Signed Impressions: Service Date/Time: Thursday, December 22, 2016 09:40 - CONCLUSION: Hyperinflation otherwise negative. Jaswinder Gilman MD [facility] Hospital Course This is a 71-year-old male with significant past medical history of tobacco abuse, COPD, daily alcohol use. Patient presented to the emergency room with worsening shortness of breath for the last 3 weeks. According to the patient, approximately 3 weeks ago he started to become more short of breath, had increased cough with increased sputum that was white in color. He noticed increased wheezing and very SOB with minimal activity. No CP, no palpitations, no fever, no chills. No other symptoms. At that time he stopped smoking. He has not taken any medications [id number]. Approximately 4 weeks ago he saw his primary care physician and had laboratory workup and was found in stable condition but was told he probably had COPD. Patient endorses that he's lost a considerable amount of weight in the last 6 months, he's not sure how much. He has very poor appetite. No blood in the stool, no nausea, no vomiting. He was referred to gastroenterology but has not followed up to have workup. Denies any abdominal pain, no diarrhea. Patient was noted in significant respiratory distress on arrival. He was noted hypoxic on room air, sats 74%. Patient was put on 100% nonrebreather, was given 3 nebulizer treatments and IV Solu-Medrol. EKG completed showed sinus tachycardia, no ST segment elevation or ectopy.CBC was significant for WBC of 15.7, MCV 107.8. Platelets 623. BMP was essentially unremarkable except for potassium of 3.1. Chest x-ray did not reveal any significant findings other than hyperinflation. Influenza was negative. Patient was started on empiric antibiotics. Potassium was corrected. Patient is now evaluated, and indicates he feels better. Patient was admitted for further evaluation and treatment: (1) COPD with acute exacerbation (2) Acute respiratory failure with hypoxia (3) Tobacco abuse (4) Hypoxia (5) Alcohol abuse, daily use (6) Malnourished (7) Unintentional weight loss During the course of the hospitalization, the following took place: 71-year-old male with history of tobacco abuse and COPD, presented to the emergency room in acute respiratory failure with hypoxia, COPD exacerbation with possible bronchitis. - Put on oxygen to keep sats greater than 92 -Initially put on IV steroids then changed to oral -Put on empiric antibiotics, cultures remain negative Continued with DuoNeb's -Walk Test was done, patient was noted to need oxygen upon discharge. Had one episode of chest pain with exertion, relieved with oxygen and rest -CKISO and Trop negative -12 lead EKG done no changes -continued ASA Anorexia, with unintentional weight loss, muscle wasting -Regular diet, Boost added TSH and B12 okay Follow up with gastroenterology for further workup as outpatient Daily alcohol use Continued thiamine and folic acid Alcohol abuse counseling completed Librium 10 mg by mouth every 8 when necessary for anxiety Monitor for withdrawal symptoms -Patient remained stable Lovenox for DVT prophylaxis CM for dc planning, for HHC, and requested to arrange oxygen Patient stable for discharge, shortness of breath and wheezing improved No fever Patient was discharged home in stable condition Patient was instructed to follow-up with PCP, pulmonary, gastroenterology Counseled to stop smoking completely and abstain from drinking Pt Condition on Discharge: Stable Discharge Disposition: Disch w/ Home Health Serv Discharge Instructions DIET: Follow Instructions for: As Tolerated, No Restrictions Activities you can perform: Regular-No Restrictions Follow up Referrals: PCP Follow-up SNF/INTERMEDIATE/ with [facility] New Medications: Albuterol 18 GM Inh (Ventolin Hfa 18 GM Inh) 90 Mcg/Act Aer 2 PUFF INH Q6H PRN SHORTNESS OF BREATH #1 Ref 0 INHALER Azithromycin (Zithromax) 500 Mg Tab 250 MG PO DAILY Infection #3 Ref 0 TAB Oxygen tank (Oxygen tank) 1 Ea Tank 2 LITER ALYSE.CANULA CONTINUOUS Oxygen Concentrator Portable Gaseous 2 L/min via Nasal Cannula Continuous For 99 months HYPOXEMIA PREVENTION #1 CYLINDER Prednisone (Prednisone) 20 Mg Tab 20 MG PO DAILY Broncospasm #5 Ref 0 TAB Continued Medications: Aspirin (Aspirin) 81 Mg Chew 81 MG CHEW DAILY CAD PREVENTION #30 Ref 1 TAB (This prescription has been renewed) Roxi Hirsch Dec 24, 2016 14:33
[2016-12-24] MEDS: AZITHROMYCIN INJ 500 MG in SODIUM CHLOR 0.9% 250 ML INJ 250 ML IV SCH (15:00)
--- NOTE | 2016-12-24 17:08 | EKG ---
Date Performed: 12/24/2016 Time Performed: 10:31:29 PTAGE: 71 years EKG: Sinus rhythm LOW QRS VOLTAGE IN EXTREMITY LEADS BORDERLINE ECG PREVIOUS TRACING : 12/22/2016 09.28 Compared to previous tracing, the patient is no longer tach ycardic and there is new low voltage in the limb leads. DOCTOR: Tanika Hammer Interpretating Date/Time 12/24/2016 17:06:38
== END 2016-12-24 16:29 | disposition home health service (06) | DRG 190 ==
LOC: NEPA 09:10 → NEDA 11:48 → N05A 16:13
PROVIDERS: ADMIT Internal Medicine; ATTEND Internal Medicine
DX: J44.1 Chronic obstructive pulmonary disease with (acute) exacerbation (principal); J96.01 Acute respiratory failure with hypoxia; E46 Unspecified protein-calorie malnutrition; Z68.1 Body mass index [BMI] 19.9 or less, adult; R63.4 Abnormal weight loss; F10.10 Alcohol abuse, uncomplicated; E87.6 Hypokalemia; Z87.891 Personal history of nicotine dependence; Z79.82 Long term (current) use of aspirin
CPT/HCPCS: 71010; 80048; 82550; 82607; 82948; 84443; 84484; 85025; 87070; 87205; 87804; 93005; 94620; 94640; 94664; 96374; J0456; J0696; J1650; J2920; J2930; J7050; J7512